=== PATIENT | female | born 1995 | race African-American/Black ===

== ENCOUNTER 2017-09-15 21:36 | Emergency (ER) | payer MEDICAID ==
[2017-09-15 22:26] LABS: BASOPHILS 0.1 % (0-2); EOSINOPHILS 0.7 % (0-7); HEMATOCRIT 36.6 % (36.0-48.0); HEMOGLOBIN 12.4 g/dL (12-16); IMMATURE GRANULOCYTES 0.3 % (0-5); MCH 29.9 pg (26.0-34.0); MCHC 33.9 g/dL (31.0-37.0); MCV 88.2 fL (80.0-100.0); MEAN PLATELET VOLUME 9.4 fL (7.4-10.4); NEUTROPHILS 81.9 % (40-80); PLATELET COUNT 235 10x3/uL (130-400); RBC 4.15 10x6/uL (4.00-5.40); RDW 13.1 % (11.5-14.5); WBC 13.7 10x3/uL (4.8-10.8)
[2017-09-15 22:46] LABS: APPEARANCE CLEAR (CLEAR); BILIRUBIN NEGATIVE (NEGATIVE); COLOR YELLOW (YELLOW); GLUCOSE NEGATIVE (NEGATIVE); KETONE SMALL mg/dL (NEGATIVE); NITRITE NEGATIVE (NEGATIVE); PROTEIN NEGATIVE (NEGATIVE); SPECIFIC GRAVITY 1.025 (1.005-1.020); UROBILINOGEN NORMAL (NORMAL)
[2017-09-15 22:46] LABS: ALBUMIN 3.4 g/dL (3.4-5.0); ALKALINE PHOSPHATASE 45 U/L (46-116); ALT (SGPT) 15 U/L (10-68); AMYLASE - SERUM 85 U/L (25-115); CALC OSMOLALITY 275 mosm/kg (275-300); CALCIUM 8.5 mg/dL (8.5-10.1); CARBON DIOXIDE 23.7 mmol/L (21.0-32.0); CHLORIDE - SERUM 105 mmol/L (98-107); CREATININE - SERUM 0.8 mg/dL (0.6-1.3); GLUCOSE 90 mg/dL (74-106); LIPASE 91 U/L (73-393); POTASSIUM - SERUM 3.7 mmol/L (3.5-5.1); PROTEIN - SERUM 6.5 g/dL (6.4-8.2); SODIUM 138 mmol/L (136-145); UREA NITROGEN 12 mg/dL (7-18); eGFR NON AFRICAN AMERICAN > 90 mL/min (90-120)
[2017-09-15 22:47] LABS: BACTERIA FEW /hpf (NONE SEEN); EPITHELIAL CELLS 0-5 /hpf (0-5); MUCUS <1+ /lpf (NONE SEEN); RED CELLS - URINE OCC /hpf (0-5); WHITE CELLS - URINE 0-5 /hpf (0-5)
[2017-09-15 22:50] LABS: HCG URINE POSITIVE (NEGATIVE)
[2017-09-25 18:35] VITALS: BMI 23.4
== END 2017-09-16 00:22 | disposition home or self-care (01) ==
LOC: D.ER 21:36
PROVIDERS: Emergency Medicine
DX: R11.10 Vomiting, unspecified (principal); R19.7 Diarrhea, unspecified; R10.9 Unspecified abdominal pain; Z32.01 Encounter for pregnancy test, result positive

== ENCOUNTER 2017-09-17 10:26 | Emergency (ER) | payer SELFPAY ==
[2017-09-17 11:00] LABS: BASOPHILS 0.1 % (0-2); EOSINOPHILS 0.1 % (0-7); HEMATOCRIT 39.4 % (36.0-48.0); HEMOGLOBIN 13.7 g/dL (12-16); IMMATURE GRANULOCYTES 0.4 % (0-5); LYMPHOCYTES 12.8 % (15-50); MCH 30.2 pg (26.0-34.0); MCHC 34.8 g/dL (31.0-37.0); MEAN PLATELET VOLUME 9.3 fL (7.4-10.4); MONOCYTES 4.5 % (2-11); NEUTROPHILS 82.1 % (40-80); PLATELET COUNT 258 10x3/uL (130-400); RBC 4.53 10x6/uL (4.00-5.40); RDW 12.9 % (11.5-14.5); WBC 13.9 10x3/uL (4.8-10.8)
[2017-09-17 11:11] LABS: ALBUMIN 3.5 g/dL (3.4-5.0); ALKALINE PHOSPHATASE 51 U/L (46-116); ALT (SGPT) 12 U/L (10-68); CALC OSMOLALITY 268 mosm/kg (275-300); CALCIUM 8.6 mg/dL (8.5-10.1); CARBON DIOXIDE 22.5 mmol/L (21.0-32.0); CHLORIDE - SERUM 102 mmol/L (98-107); CREATININE - SERUM 0.8 mg/dL (0.6-1.3); GLUCOSE 79 mg/dL (74-106); POTASSIUM - SERUM 3.4 mmol/L (3.5-5.1); PROTEIN - SERUM 6.8 g/dL (6.4-8.2); SODIUM 135 mmol/L (136-145); UREA NITROGEN 12 mg/dL (7-18); eGFR NON AFRICAN AMERICAN > 90 mL/min (90-120)
[2017-09-17 11:34] LABS: HCG - QUANTITATIVE (MATERNAL) 32910 mIU/mL
[2017-09-17 11:57] LABS: APPEARANCE CLOUDY (CLEAR); BILIRUBIN NEGATIVE (NEGATIVE); COLOR YELLOW (YELLOW); GLUCOSE NEGATIVE (NEGATIVE); KETONE LARGE mg/dL (NEGATIVE); NITRITE NEGATIVE (NEGATIVE); PROTEIN TRACE mg/dL (NEGATIVE); RED CELLS - URINE NONE SEEN /hpf (0-5); SPECIFIC GRAVITY 1.025 (1.005-1.020); UROBILINOGEN NORMAL (NORMAL); WHITE CELLS - URINE 0-5 /hpf (0-5)
[2017-09-17 11:58] LABS: BACTERIA MANY /hpf (NONE SEEN); MUCUS >1+ /lpf (NONE SEEN)
[2017-09-25 18:35] VITALS: BMI 23.4
== END 2017-09-17 13:10 | disposition home or self-care (01) ==
LOC: D.ER 10:26
PROVIDERS: Family Medicine
DX: O21.9 Vomiting of pregnancy, unspecified (principal); Z3A.00 Weeks of gestation of pregnancy not specified; B96.89 Other specified bacterial agents as the cause of diseases classified elsewhere

== ENCOUNTER 2017-09-23 17:01 | Emergency (ER) | payer MEDICAID ==
[2017-09-23 17:55] LABS: BASOPHILS 0.1 % (0-2); EOSINOPHILS 0.2 % (0-7); HEMATOCRIT 39.7 % (36.0-48.0); IMMATURE GRANULOCYTES 0.3 % (0-5); LYMPHOCYTES 10.9 % (15-50); MCH 30.6 pg (26.0-34.0); MCHC 35.3 g/dL (31.0-37.0); MCV 86.7 fL (80.0-100.0); MEAN PLATELET VOLUME 9.7 fL (7.4-10.4); MONOCYTES 4.7 % (2-11); NEUTROPHILS 83.8 % (40-80); PLATELET COUNT 255 10x3/uL (130-400); RBC 4.58 10x6/uL (4.00-5.40); RDW 12.8 % (11.5-14.5); WBC 16.5 10x3/uL (4.8-10.8)
[2017-09-23 19:09] LABS: ALBUMIN 3.5 g/dL (3.4-5.0); ALKALINE PHOSPHATASE 48 U/L (46-116); ALT (SGPT) 19 U/L (10-68); AMYLASE - SERUM 87 U/L (25-115); BILIRUBIN - TOTAL 1.42 mg/dL (0.2-1.3); CALC OSMOLALITY 271 mosm/kg (275-300); CALCIUM 8.9 mg/dL (8.5-10.1); CARBON DIOXIDE 22.5 mmol/L (21.0-32.0); CHLORIDE - SERUM 100 mmol/L (98-107); CREATININE - SERUM 0.9 mg/dL (0.6-1.3); GLUCOSE 78 mg/dL (74-106); LIPASE 125 U/L (73-393); POTASSIUM - SERUM 3.5 mmol/L (3.5-5.1); PROTEIN - SERUM 6.8 g/dL (6.4-8.2); SODIUM 136 mmol/L (136-145); UREA NITROGEN 16 mg/dL (7-18); eGFR NON AFRICAN AMERICAN 82 mL/min (90-120)
[2017-09-23 20:02] LABS: HCG SERUM POSITIVE (NEGATIVE)
[2017-09-23 20:10] LABS: APPEARANCE CLEAR (CLEAR); BILIRUBIN NEGATIVE (NEGATIVE); COLOR AMBER (YELLOW); GLUCOSE NEGATIVE (NEGATIVE); KETONE LARGE mg/dL (NEGATIVE); NITRITE NEGATIVE (NEGATIVE); PROTEIN NEGATIVE (NEGATIVE); SPECIFIC GRAVITY 1.015 (1.005-1.020); UROBILINOGEN NORMAL (NORMAL)
[2017-09-25 18:35] VITALS: BMI 23.4
== END 2017-09-23 22:48 | disposition home or self-care (01) ==
LOC: D.ER 17:01
PROVIDERS: Family Medicine; Nurse Practitioner Family
DX: O21.0 Mild hyperemesis gravidarum (principal); Z3A.01 Less than 8 weeks gestation of pregnancy; N83.202 Unspecified ovarian cyst, left side

== ENCOUNTER 2017-09-25 10:43 | Inpatient (IN) | payer MEDICAID ==
[~2017-09-25] VITALS: Ht 162.6 cm; Wt 61.8 kg
[2017-09-25 12:15] LABS: HEMOGLOBIN 13.7 g/dL (12-16); MCH 30.6 pg (26.0-34.0); MCHC 35.1 g/dL (31.0-37.0); MCV 87.1 fL (80.0-100.0); MEAN PLATELET VOLUME 9.8 fL (7.4-10.4); PLATELET COUNT 255 10x3/uL (130-400); RBC 4.48 10x6/uL (4.00-5.40); RDW 12.6 % (11.5-14.5); WBC 16.3 10x3/uL (4.8-10.8)
[2017-09-25 12:23] LABS: KETONE - SERUM SMALL mg/dL (NEGATIVE)
[2017-09-25 12:30] LABS: LYMPHOCYTES 11 % (15-50); MONOCYTES 3 % (2-11); NEUTROPHILS 86 % (40-80); PLATELET ESTIMATE NORMAL
[2017-09-25 12:32] LABS: ALBUMIN 3.4 g/dL (3.4-5.0); ALKALINE PHOSPHATASE 46 U/L (46-116); ALT (SGPT) 17 U/L (10-68); BILIRUBIN - TOTAL 1.61 mg/dL (0.2-1.3); CALC OSMOLALITY 268 mosm/kg (275-300); CALCIUM 8.9 mg/dL (8.5-10.1); CARBON DIOXIDE 21.7 mmol/L (21.0-32.0); CHLORIDE - SERUM 101 mmol/L (98-107); CREATININE - SERUM 0.8 mg/dL (0.6-1.3); GLUCOSE 78 mg/dL (74-106); POTASSIUM - SERUM 3.9 mmol/L (3.5-5.1); PROTEIN - SERUM 6.6 g/dL (6.4-8.2); SODIUM 135 mmol/L (136-145); UREA NITROGEN 13 mg/dL (7-18); eGFR NON AFRICAN AMERICAN > 90 mL/min (90-120)
[2017-09-25 18:35] VITALS: BP 114/68; Ht 162.6 cm; Wt 61.8 kg
[2017-09-25 19:16] VITALS: BP 105/57
[2017-09-26 01:00] VITALS: BP 104/58
[2017-09-26 07:30] VITALS: BP 105/56
[2017-09-26] MEDS ORDERED: REGLAN10 MG PO (09:00)
[2017-09-26] MEDS ORDERED: PEPCID20 MG PO (09:01)
== END 2017-09-26 09:15 | disposition home or self-care (01) | DRG 781 ==
LOC: D.LD 10:43 → D.LDO 10:43 → D.LD 10:43 → D.LDO 09-26 00:11 → D.LD 09-26 09:15 → D.LDO 09-26 09:15 → D.LD 09-26 09:15 → EDSTATUS 09-30 16:06
PROVIDERS: Obstetrics & Gynecology
DX: O21.0 Mild hyperemesis gravidarum (principal); Z3A.01 Less than 8 weeks gestation of pregnancy

== ENCOUNTER → 2017-10-02 08:50 | Outpatient (CLI) | payer MEDICAID ==
[2017-09-25 18:35] VITALS: BMI 23.4
[~2017-10-02 08:50] MED LIST: PEPCID20 MG PO; REGLAN10 MG PO
[2017-10-02 10:31] LABS: KETONE - SERUM NEGATIVE (NEGATIVE)
[2017-10-02 10:34] LABS: ALBUMIN 3.3 g/dL (3.4-5.0); ALKALINE PHOSPHATASE 42 U/L (46-116); ALT (SGPT) 23 U/L (10-68); AMYLASE - SERUM 126 U/L (25-115); BILIRUBIN - TOTAL 1.01 mg/dL (0.2-1.3); CALC OSMOLALITY 266 mosm/kg (275-300); CARBON DIOXIDE 23.9 mmol/L (21.0-32.0); CHLORIDE - SERUM 100 mmol/L (98-107); CREATININE - SERUM 0.8 mg/dL (0.6-1.3); GLUCOSE 84 mg/dL (74-106); LIPASE 199 U/L (73-393); POTASSIUM - SERUM 3.1 mmol/L (3.5-5.1); PROTEIN - SERUM 6.7 g/dL (6.4-8.2); SODIUM 134 mmol/L (136-145); UREA NITROGEN 13 mg/dL (7-18); eGFR NON AFRICAN AMERICAN > 90 mL/min (90-120)
== END | disposition home or self-care (01) ==
LOC: D.LDO 08:50
PROVIDERS: Obstetrics & Gynecology
DX: O26.899 Other specified pregnancy related conditions, unspecified trimester (principal); Z3A.00 Weeks of gestation of pregnancy not specified; R11.0 Nausea

== ENCOUNTER 2017-10-09 13:58 | Outpatient (CLI) | payer MEDICAID ==
[2017-09-25 18:35] VITALS: BMI 23.4
[2017-10-09 15:07] LABS: BASOPHILS 0.2 % (0-2); EOSINOPHILS 0.9 % (0-7); HEMATOCRIT 39.3 % (36.0-48.0); HEMOGLOBIN 13.9 g/dL (12-16); IMMATURE GRANULOCYTES 0.3 % (0-5); LYMPHOCYTES 14.6 % (15-50); MCH 30.2 pg (26.0-34.0); MCHC 35.4 g/dL (31.0-37.0); MCV 85.2 fL (80.0-100.0); MONOCYTES 7.3 % (2-11); NEUTROPHILS 76.7 % (40-80); PLATELET COUNT 228 10x3/uL (130-400); RBC 4.61 10x6/uL (4.00-5.40); RDW 12.6 % (11.5-14.5); WBC 12.4 10x3/uL (4.8-10.8)
[2017-10-09 15:43] LABS: KETONE - SERUM NEGATIVE (NEGATIVE)
[2017-10-09 15:54] LABS: ALBUMIN 3.3 g/dL (3.4-5.0); ALKALINE PHOSPHATASE 51 U/L (46-116); ALT (SGPT) 55 U/L (10-68); BILIRUBIN - TOTAL 1.46 mg/dL (0.2-1.3); CALC OSMOLALITY 263 mosm/kg (275-300); CALCIUM 9.1 mg/dL (8.5-10.1); CARBON DIOXIDE 22.5 mmol/L (21.0-32.0); CHLORIDE - SERUM 99 mmol/L (98-107); CREATININE - SERUM 0.7 mg/dL (0.6-1.3); GLUCOSE 89 mg/dL (74-106); POTASSIUM - SERUM 3.9 mmol/L (3.5-5.1); PROTEIN - SERUM 7.1 g/dL (6.4-8.2); SODIUM 132 mmol/L (136-145); UREA NITROGEN 13 mg/dL (7-18); eGFR NON AFRICAN AMERICAN > 90 mL/min (90-120)
== END 2017-10-10 09:55 | disposition home or self-care (01) ==
LOC: D.LDO 13:58 → D.LD 18:45 → D.LDO 10-10 09:55
PROVIDERS: Obstetrics & Gynecology
DX: O21.9 Vomiting of pregnancy, unspecified (principal); Z3A.00 Weeks of gestation of pregnancy not specified

== ENCOUNTER 2018-04-21 21:09 | Outpatient (CLI) | payer MEDICAID ==
[2017-09-25 18:35] VITALS: BMI 23.4
[2018-04-21 21:32] LABS: APPEARANCE CLEAR (CLEAR); BILIRUBIN NEGATIVE (NEGATIVE); COLOR YELLOW (YELLOW); GLUCOSE NEGATIVE (NEGATIVE); KETONE NEGATIVE (NEGATIVE); NITRITE NEGATIVE (NEGATIVE); PROTEIN TRACE mg/dL (NEGATIVE); UROBILINOGEN NORMAL (NORMAL)
[2018-04-21 21:37] LABS: AMORPHOUS SEDIMENT <1+ /lpf (NONE SEEN); BACTERIA MANY /hpf (NONE SEEN); MUCUS <1+ /lpf (NONE SEEN); RED CELLS - URINE 0-5 /hpf (0-5)
[2018-04-21 21:38] LABS: HYALINE CAST 0-5 /lpf (NONE SEEN)
== END 2018-04-21 22:53 | disposition home or self-care (01) ==
LOC: D.LDO 21:09
PROVIDERS: Obstetrics & Gynecology
DX: O26.893 Other specified pregnancy related conditions, third trimester (principal); Z3A.36 36 weeks gestation of pregnancy

== ENCOUNTER → 2018-04-27 12:08 | Outpatient (CLI) | payer MEDICAID ==
[2017-09-25 18:35] VITALS: BMI 23.4
== END | disposition home or self-care (01) ==
LOC: D.LDO 12:08
DX: O26.893 Other specified pregnancy related conditions, third trimester (principal); Z3A.37 37 weeks gestation of pregnancy

== ENCOUNTER 2018-05-02 02:45 | Inpatient (IN) | payer MEDICAID ==
[~2018-05-02] VITALS: Ht 162.6 cm; Wt 77.1 kg
[2018-05-02 03:34] VITALS: BP 136/61; Ht 162.6 cm; Wt 77.1 kg
[2018-05-02 04:30] LABS: HEMATOCRIT 35.7 % (36.0-48.0); HEMOGLOBIN 11.4 g/dL (12-16); MCH 26.3 pg (26.0-34.0); MCHC 31.9 g/dL (31.0-37.0); MCV 82.3 fL (80.0-100.0); MEAN PLATELET VOLUME 9.3 fL (7.4-10.4); RBC 4.34 10x6/uL (4.00-5.40); WBC 17.3 10x3/uL (4.8-10.8)
[2018-05-02 08:34] VITALS: BP 118/56
--- NOTE | 2018-05-02 08:34 | NUR ---
AROUSED FROM SLEEP FOR ASSESSMENT. VS OBTAINED, SHIFT ASSESSMENT COMPLETED 1/ DEVIATED TO RIGHT, PERIPADS CLEAN AND DRY, STILL FEELS "TINGLING" AND NOTED "NUMBNESS WHEN TOUCHING LE. WILL GET OOB TO VOID SOON ABLE TO AMBULATE OR BEDPAN SOONER IF INDICATED. IV FLUIDS COMPLETED AND DC'D, SALINE LOCK LEFT IN PLACE. C/O OF ABDOMINAL CRAMPING 11/04. ASSISTED WITH BREAKFAST TRAY, SIDE RAILS UP X 2, CALL LIGHT IN REACH. VISITOR ON COUCH.
--- NOTE | 2018-05-02 08:38 | NUR ---
TORADOL 10 MG GIVEN PO FOR RELIEF OF ABDOMINAL CRAMPING. PT IS NON-SMOKER, BREASTFEEDER, A+, RUBELLA IMMUNE, GBS NEGATIVE.
--- NOTE | 2018-05-02 09:30 | NUR ---
READY TO VOID. EPIDURAL CATHETER REMOVED WITH TIP INTACT. AMBULATED TO BATHROOM WITHOUT DIFFICULTY. VOIDED 600 ML URINE, LOCHIA NOTED. UDS OBTAINED SECONDARY TO HX + THC AND URINE NOT OBTAINED ON ADMIT. PERICARE COMPLETED WITH WARM WATER AT PRESENT, CLEAN UNDERWEAR AND PERIPADS X 2 PLACED. AMBULATED TO ROOM 1257 WITH PROBLEMS. IN NURSERY, ALL BELONGINGS REMOVED FROM ROOM. ORIENTED TO ROOM. DESIRED TO WALK TO NURSERY TO SEE INFANT.
--- NOTE | 2018-05-02 10:39 | NUR ---
SITTING UP IN BED HOLDING , GETTING READY TO BREASTFEED. DENIES NEEDING ANYTHING AT THIS TIME. VISITORS IN ROOM. TO CALL IF ANYTHING IS NEEDED.
--- NOTE | 2018-05-02 12:34 | NUR ---
SITTING UP IN BED TALKING TO VISITORS, INFANT IN CRIB. HAS NOT CHANGE MIKALA-PADS SINCE TRANSFER TO ROOM. DENIES PAIN OR PROBLEMS AT PRESENT. PLANS TO GET UP TO VOID AT THIS TIME. NON-SKID SOCKS GIVEN. SIDE RAILS UP X 2, CALL LIGHT IN REACH. READY FOR LUNCH.
[2018-05-02 12:37] VITALS: BP 105/60
[2018-05-02 12:44] LABS: UDS - AMPHET NEGATIVE QUAL (NEGATIVE); UDS - BARB NEGATIVE QUAL (NEGATIVE); UDS - BENZO NEGATIVE QUAL (NEGATIVE); UDS - COCAINE NEGATIVE QUAL (NEGATIVE); UDS - OPIATE NEGATIVE QUAL (NEGATIVE); UDS - PCP NEGATIVE QUAL (NEGATIVE); UDS - THC NEGATIVE QUAL (NEGATIVE)
[2018-05-02 12:46] LABS: APPEARANCE CLOUDY (CLEAR); COLOR RED (YELLOW); GLUCOSE NEGATIVE (NEGATIVE); NITRITE NEGATIVE (NEGATIVE); PROTEIN 1+ mg/dL (NEGATIVE); SPECIFIC GRAVITY 1.005 (1.005-1.020)
[2018-05-02 12:47] LABS: BILIRUBIN NEGATIVE (NEGATIVE); KETONE NEGATIVE (NEGATIVE); UROBILINOGEN NORMAL (NORMAL)
[2018-05-02 12:48] LABS: BACTERIA NONE SEEN /hpf (NONE SEEN); EPITHELIAL CELLS 0-5 /hpf (0-5); WHITE CELLS - URINE 0-5 /hpf (0-5)
--- NOTE | 2018-05-02 16:24 | NUR ---
FINISHED SHOWER WITHOUT DIFFICULTY. REQUESTED LOTION. ALSO GIVEN JUICE, JORGE CRACKER/PEANUT BUTTER FOR SNACK. DENIES NEEDING ANYTHING FOR PAIN. SAYS IT IS 2/10 ACHING IN PERINEAL AREA. DECLINES ICE PACK. NO ADDITIONAL REQUESTS. IN ROOM. SIDERAILS UP X 2, CALL LIGHT IN REACH.
--- NOTE | 2018-05-02 18:14 | NUR ---
SITTING UP IN BED . SCHEDULED TYLENOL GIVEN. /10 ABDOMINAL CRAMPING AT THIS TIME. NO ADDITIONAL REQUESTS. FRESH WATER GIVEN. VISITORS IN ROOM. SIDE RAILS UP X 2, CALL LIGHT IN REACH.
--- NOTE | 2018-05-02 18:15 | NUR ---
ROOM CHECK. INFANT TO BREAST AT THIS TIME. MOM DENIES ANY NEEDS.
--- NOTE | 2018-05-02 19:03 | NUR ---
RN TO PT BS WITH Leonardo CAMARGO RN FOR BEDSIDE REPORT. PT RESTING IN BED IN SEMI-FOWLERS POSITION, HOLDING . PT IN NO ACUTE DISTRESS. PT C/O PAIN, RATES 7/10, CRAMPING, REQUESTS MEDICATION. WILL BRING PT TORDAL PO WHEN RETURN FOR RENZO. PT DENIES ANY FURTHER NEEDS AT THIS TIME. BED IN LOW POSITION, SIDE RAILS UP TIMES 2, CALL LIGHT AND PHONE IN REACH. WILL CONT TO MONITOR PT STATUS.
[2018-05-02 19:20] VITALS: BP 114/66
--- NOTE | 2018-05-02 19:20 | NUR ---
RN TO PT BS FOR RENZO. PT RESTING IN BED IN SEMI-FOWLERS POSITION, INFANT. PT IN NO ACUTE DISTRESS. PT IS A G2 NOW P2 WITH OF VIABLE FEMALE INFANT THIS AM @ 0547. @ 38.3 WKS GESTATION. PT WITH NO LACERATIONS OR EPIS. AAOX3. HR REGULAR. LUNGS CTAB. ABDOMEN SOFT AND TENDER WITH PALPATION. BS ACTIVE TIMES 4. FUNDUS NOT PALPATED. PT STATES SHE HAS PASSED GAS SINCE BUT HAS NOT HAD A BM. PT DENIES DIFFICULTY VOIDING. PT TOLERATING A REGULAR DIET WITHOUT DIFFICULTY. MIKALA PAD AND PANTIES IN PLACE. PERINIUM APPEARS TO BE INTACT WITH MINIMAL SWELLING NOTED. LOCHIA RUBRA SCANT. NO EDEMA NOTED TO UPPER OR LOWER EXTREMITIES BILATERALLY. 20G SL IN PLACE TO RIGHT FA. FLUSHED AT THIS TIME WITH 5 CC NS WITHOUT DIFFICULTY. NO REDNESS, EDEMA, OR DRAINAGE NOTED AT SITE. TORDAL 10MG PO PROVIDED TO PT FOR C/O CRAMPING RATING 7/10. PT DENIES ANY FURTHER NEEDS. BED IN LOW POSITION, SIDE RAILS UP TIMES 2 CALL LIGHT AND PHONE IN REACH. SO REMAINS AT PT BS FOR SUPPORT AND ASSISTANCE. INFANT REMAINS AT PT BS FOR COUPLET CARE. WILL CONT TO MONITOR PT STATUS.
--- NOTE | 2018-05-02 21:02 | NUR ---
RN TO PT BS FOR ROUNDS. PT RESTING IN BED IN SEMI-FOWLERS, HOLDING , IN NO ACUTE DISTRESS. PT DENIES ANY NEEDS AT THIS TIME. BED IN LOW POSITION, SIDE RAILS UP TIMES 2, CALL LIGHT AND PHONE IN REACH. NO FAMILY AT BS. REMAINS AT PT BS FOR COUPLET CARE. WILL CONT TO MONITOR PT STATUS.
--- NOTE | 2018-05-02 23:08 | NUR ---
RN TO PT BS FOR ROUNDS. PT RESTING IN BED IN SEMI-FOWLERS POSITION, HOLDING . PT IN NO ACUTE DISTRESS. PT DENIES ANY NEEDS AT THIS TIME. BED IN LOW POSITION, SIDE RAILS UP TIMES 2, CALL LIGHT AND PHONE IN REACH. NO FAMILY AT BS. REMAINS AT PT BS FOR COUPLET CARE. WILL CONT TO MONITOR PT STATUS.
--- NOTE | 2018-05-03 00:18 | NUR ---
RN TO PT BS. PT RESTING IN BED IN SEMI-FOWLERS POSITION, WITH EYES CLOSED, HOLDING INFANT. RESPIRATIONS EVEN AND UNLABORED. PT AWAKENS EASILY WHEN SPOKEN TO. PT WARNED ABOUT THE RISKS OF SLEEPING WITH . BEST PRACTICE IS TO ALLOW TO SLEEP IN OPEN CRIB ON BACK, WHEN PT IS SLEEPING. SCHEDULED DOSE OF TYLENOL 1000MG PO PROVIDED TO PT AT THIS TIME. PT DENIES ANY FURTHER NEEDS. BED IN LOW POSITION, SIDE RAILS UP TIMES 2, CALL LIGHT AND PHONE IN REACH. NO FAMILY AT BS. REMAINS AT PT BS FOR COUPLET CARE. WILL CONT TO MONITOR PT STATUS.
--- NOTE | 2018-05-03 02:09 | NUR ---
RN TO PT BS FOR ROUNDS. PT RESTING IN BED IN SEMI-FOWLERS POSITION, , PT IN NO ACUTE DISTRESS. ADDITIONAL DISPOSIBLE UNDERWEAR PROVIDED TO PT AT THIS TIME. PT DENIES ANY FURTHER NEEDS AT THIS TIME. NO FAMILY AT BS. REMAINS AT PT BS FOR COUPLET CARE. BED IN LOW POSITION, SIDE RAILS UP TIMES 2, CALL LIGHT AND PHONE IN REACH. WILL CONT TO MONITOR PT STATUS.
--- NOTE | 2018-05-03 03:57 | NUR ---
RN TO PT BS FOR ROUNDS. PT RESTING IN BED IN SEMI-FOWLERS POSITION, HOLDING . PT IN NO ACUTE DISTRESS. PT REQUESTS BE TAKEN TO NURSERY TO ALLOW MOTHER TO REST. TRANSPORTED TO NURSERY VIA OPEN CRIB, REPORT GIVEN TO NURSERY RN. PT DENIES ANY FURTHER NEEDS. BED IN LOW POSITION, SIDE RAILS UP TIMES 2, CALL LIGHT AND PHONE IN REACH. NO FAMILY AT BS. WILL CONT TO MONITOR PT STATUS.
--- NOTE | 2018-05-03 06:06 | NUR ---
RN TO PT BS. PT RESTING IN BED IN SEMI-FOWLERS POSITION, HOLDING INFANT. PT IN NO ACUTE DISTRESS. SCHEDULED TYLENOL 1000MG PROVIDED TO PT PO AT THIS TIME. PT DENIES ANY FURTHER NEEDS. BED IN LOW POSITION, SIDE RAILS UP TIMES 2, CALL LIGHT AND PHONE IN REACH. NO FAMILY AT BS. INFANT REMAINS AT PT BS FOR COUPLET CARE. WILL CONT TO MONITOR PT STATUS AND GIVE REPORT TO AM SHIFT.
[2018-05-03 07:45] VITALS: BP 117/72
--- NOTE | 2018-05-03 07:45 | NUR ---
TO PT'S ROOM FOR AM ASSESSMENT. PT IS SITTING UP IN THE BED WATCHING TELEVISION. SR UP X 2, CALL LIGHT AND PHONE WITHIN REACH. PT DENIES NEEDS AT THIS TIME. STATES SHE WOULD LIKE TO TAKE A SHOWER. CLEAN LINENS PROVIDED, TOWELS/WASHCLOTHS, PERIPADS/PANTIES. PT DENIES HEAVY BLEEDING OR PASSING CLOTS. REPORTS LOCHIA IS "JUST LIKE MY NORMAL PERIOD". DENIES NEEDING PAIN MEDICATION AT THIS TIME. SEE FLOWSHEET FOR ASSESSMENT.
[2018-05-03 08:26] LABS: HEMATOCRIT 35.7 % (36.0-48.0); HEMOGLOBIN 11.3 g/dL (12-16); MCH 26.5 pg (26.0-34.0); MCHC 31.7 g/dL (31.0-37.0); MCV 83.6 fL (80.0-100.0); MEAN PLATELET VOLUME 9.6 fL (7.4-10.4); RBC 4.27 10x6/uL (4.00-5.40); RDW 15.7 % (11.5-14.5)
--- NOTE | 2018-05-03 10:00 | NUR ---
PT DENIES ALL NEEDS AT THIS TIME. PT HAS TAKEN A SHOWER, AND HAS BEEN AMBUALTORY TO NSY AND IN HALLWAYS. SR UP X2, CALL LIGHT AND PHONE WITHIN REACH.
--- NOTE | 2018-05-03 10:15 | NUR ---
DR. HECTOR ON UNIT, MD TO ROOM TO SPEAK WITH PT. VERBAL ORDER RECEIVED FROM DR. HECTOR TO DISCHARGE PT HOME WITH INFANT.
--- NOTE | 2018-05-03 10:20 | OP ---
PATIENT NAME: ATIYA MARINO MEDICAL RECORD: [id number] :93 LOCATION:[id number] ADMISSION DATE:05/02/18 SURGEON: SIDRA LEE MD DATE OF OPERATION: 05/02/2018 DELIVERY NOTE PREDELIVERY DIAGNOSES: 1. at 38 weeks gestation. 2. Spontaneous rupture of membranes. POSTDELIVERY DIAGNOSES: 1. at 38 weeks gestation. 2. Spontaneous rupture of membranes. 3. Mother, delivered. PROCEDURE: Vaginal delivery. ATTENDING: Sidra Lee MD ANESTHETIC: Continuous lumbar epidural. FINDINGS: Viable female infant, Apgars were 9 and 9. Placenta spontaneous and intact. No laceration. ESTIMATED BLOOD LOSS: 300 cc. DISPOSITION: Mother and recovered in the room. Weight is not available at the time of dictation. TRANSINT:[id number] Voice Confirmation ID: [id number] DOCUMENT ID: [id number] SIDRA LEE MD at 1020 CC: [id number] DICTATION DATE: 05/02/18 0639 NATURAL RESOURCES ENGINEER: 05/02/18 0657 ADM IN [facility] [address] [place] [address]
--- NOTE | 2018-05-03 13:30 | NUR ---
TO PT'S ROOM. PT IS SITTING UP IN THE BED, REQUESTS LARGE GLASS OF ICE WATER, SERVED. DENIES ALL OTHER NEEDS AT THIS TIME. DISCHARGE PLANNING DISCUSSED WITH PT. PT AGREES. SR UP X2, CALL LIGHT AND PHONE WITHIN REACH.
--- NOTE | 2018-05-03 15:00 | NUR ---
UP AD GEOVANNI. WAITING FOR DC HOME. DENIES NEEDING ANYTHING AT PRESENT. RH POSITIVE, RUBELLA IMMUNE. SAYS SHE HAD TDAP AND FLU VACCINATION WHILE . TO CALL IF ANYTHING IS NEEDED.
--- NOTE | 2018-05-03 16:45 | NUR ---
DISCHARGE INSTRUCTIONS EXPLAINED TO PT, WITH COPIES PROVIDED TO PT. PT DENIES QUESTIONS. TELEPHONE CALL MADE TO DR. HECTOR, NO PRESCRIPTIONS WRITTEN FOR PT, PT DENIES NEEDING PAIN MEDICATION AT HOME, OTHER THAN OVER THE COUNTER TYLENOL. SEE EMAR FOR DEPO PROVERA ADM. PT AND SIG OTHER AMBULATORY OFF UNIT WITH IN CARSEAT, AND SIG OTHER CARRYING BABY. PT REFUSES WHEELCHAIR OFF UNIT, SHE STATES SHE WANTS TO WALK. PT DC'D AMBULATORY OFF UNIT IN STABLE CONDITION.
[2018-05-05 03:11] LABS: RAPID PLASMA REAGIN Non Reactive (Non Reactive)
== END 2018-05-03 16:45 | disposition home or self-care (01) | DRG 807 ==
LOC: D.LDO 02:45 → D.LD 03:27
PROVIDERS: ADMIT Obstetrics & Gynecology
PROC: 10E0XZZ Delivery of Products of Conception, External Approach (ICD-10-PCS; principal; 2018-05-02)
DX: O80 Encounter for full-term uncomplicated delivery (principal); Z37.0 Single live birth; Z3A.38 38 weeks gestation of pregnancy

== ENCOUNTER 2018-07-27 10:30 | Day surgery (SDC) | payer MEDICAID ==
[2018-07-24 10:29] LABS: BASOPHILS 0.4 % (0-2); EOSINOPHILS 3.2 % (0-7); HEMATOCRIT 42.5 % (36.0-48.0); HEMOGLOBIN 13.9 g/dL (12-16); IMMATURE GRANULOCYTES 0.4 % (0-5); LYMPHOCYTES 29.1 % (15-50); MCH 27.6 pg (26.0-34.0); MCHC 32.7 g/dL (31.0-37.0); MCV 84.5 fL (80.0-100.0); MEAN PLATELET VOLUME 9.1 fL (7.4-10.4); MONOCYTES 8.4 % (2-11); NEUTROPHILS 58.5 % (40-80); PLATELET COUNT 258 10x3/uL (130-400); RBC 5.03 10x6/uL (4.00-5.40); RDW 17.1 % (11.5-14.5); WBC 7.9 10x3/uL (4.8-10.8)
[~2018-07-27] VITALS: Ht 162.6 cm; Wt 86.7 kg
[2018-07-27 10:45] VITALS: BP 133/73; Ht 162.6 cm; Wt 86.7 kg
[2018-07-27 11:50] LABS: HCG URINE NEGATIVE (NEGATIVE)
--- NOTE | 2018-07-27 14:37 | NUR ---
PT IS ABLE TO TOLERATE FULL LIQUID DIET. PT VOIDED.
--- NOTE | 2018-07-27 14:52 | NUR ---
DC INSTRUCTIONS GIVEN TO PT/FAMILY. STATE UNDERSTANDING. DC'D IV CATH FULLY INTACT.
--- NOTE | 2018-07-27 15:23 | NUR ---
PT LEFT UNIT VIA WC AT 1514
--- NOTE | 2018-09-03 15:29 | OP ---
PATIENT NAME: ATIYA MARINO MEDICAL RECORD: [id number] :93 LOCATION:[facility] ADMISSION DATE: SURGEON: SIDRA HECTOR MD DATE OF OPERATION: 07/27/2018 PREOPERATIVE DIAGNOSIS: Undesired fertility. POSTOPERATIVE DIAGNOSIS: Undesired fertility. PROCEDURES: Bilateral tubal occlusion using Falope ring. SURGEON: Sidra Hector MD ANESTHESIOLOGIST: Dr. Chew. ANESTHESIA: General anesthetic with endotracheal intubation. FINDINGS: Unremarkable uterus, tubes, and ovaries bilaterally. SPECIMENS REMOVED: None. SPECIMEN DISPOSITION: None applicable. ESTIMATED BLOOD LOSS: Minimal. FLUIDS: 900 cc lactated Ringer's. URINE OUTPUT: Quantity sufficient void prior to this procedure. COMPLICATIONS: None. DRAINS: None. INDICATIONS: The patient is a 22-year-old multiparous female with undesired fertility. The patient understands risks and benefits of tubal occlusion including the possibility of an ectopic gestation, which can be a life-threatening disease if not treated properly DESCRIPTION OF PROCEDURE: After informed consent was assured, the patient was taken to the operating room where anesthetic was obtained. The patient was prepped and draped in the supine position on the table. An incision was made in the umbilicus to accommodate a 5-mm trocar, which was inserted without difficulty. With the patient in Trendelenburg position, an 8-mm trocar was now inserted in the midline, 2 fingerbreadths above the symphysis. Through this port, a blunt probe was used to follow both tubes to their fimbriated ends. A Falope ring applicator was now inserted and a ring applied at the isthmic portion of the right tube. There was good knuckle formation and blanching. This was repeated on the contralateral side. Marcaine was placed directly over both occlusion sites. The accessory trocars were removed under direct visualization as the pneumoperitoneum was released. Primary trocar was now removed and all sites closed with a subcuticular stitch. Dermabond was applied. Sponge, lap, and needle counts correct times 2. TRANSINT:[id number] Voice Confirmation ID: [id number] DOCUMENT ID: [id number] OPERATIVE REPORT [id number] ATIYA MARINO SIDRA HECTOR MD at 152 CC: [id number] DICTATION DATE: 09/03/18811 CULLET CRUSHER AND WASHER: 09/03/1833 [facility] 07/27/18 [facility] [address] [place] [address]
== END 2018-07-27 15:14 | disposition home or self-care (01) ==
LOC: D.OPS 10:30
PROVIDERS: ATTEND Obstetrics & Gynecology
DX: Z30.2 Encounter for sterilization (principal)